=== PATIENT | female | born 1985 | race Caucasian/White ===

== ENCOUNTER 2018-09-20 09:41 | Emergency (ER) | payer OTHER ==
--- NOTE | 2018-09-20 09:56 | EDPHY ---
H & P Stated Complaint: Slammed R pointer finger in door this am Source: Patient Exam Limitations: No limitations - Personal History LMP (Females 10-55): 15-21 Days Ago Tetanus Vaccine Date: 2005 - Medical/Surgical History Hx Asthma: No Hx Chronic Respiratory Disease: No Hx Diabetes: No Hx Cardiac Disease: No Hx Renal Disease: No Hx Cirrhosis: No Hx Alcoholism: No Hx HIV/AIDS: No Hx Splenectomy or Spleen Trauma: No Other PMH: depression, bipolar - Social History Smoking Status: Never smoked Time Seen by Provider: 09/20/18 09:55 HPI/ROS: HPI: This is a 33-year-old female who presents with Chief Complaint: Slammed R pointer finger in door this am Location: Right index finger Quality: Injury Duration: 45 min prior to arrival Signs and Symptoms: No bleeding, no radiation, no numbness, no weakness, no tingling, no incontinence, + decreased range of motion, + swelling, + pain, no fever Timing: Acute Severity: 12/31 Context: Patient is right-hand dominant, presents with accidentally slamming her right index finger into the car door. She reports that the car door latch. Her poor friend was in the car and unlock the door and open the door for her. She reports that she has swelling and pain at the base of the right index finger. Pain is worsened with flexion and extension. Denies radiation, weakness. Modifying Factors: Ice pack applied Comment: ROS: A comprehensive 10 system review of systems is otherwise negative aside from elements mentioned in the history of present illness. MEDICAL/SURGICAL/SOCIAL HISTORY: Medical history: Depression, bipolar. Takes oral control pills. LMP 2- 3 days ago. Surgical history: Denies Social history: Nonsmoker CONSTITUTIONAL: Calm and cooperative adult white female, awake and alert, no obvious distress HEENT: Atraumatic and normocephalic. NECK: supple, no midline tenderness, flexion 45 degrees, extension 45 degrees, right and left lateral flexion 45 degrees. No meningismus. Cardiovascular: Normal S1/S2, regular rate, regular rhythm, without murmur rub or gallop. PULMONARY/CHEST: Symmetrical and nontender. Clear to auscultation bilaterally. Good air movement. No accessory muscle usage. ABDOMEN: Soft, nondistended, nontender. EXTREMITIES: 2/2 pulses, strength 5/5, right index finger shows swelling between the PIP and MCP joints with mild ecchymosis. No breaks in the skin. DIP/PIP/MCP flexion/extension intact with good light touch sensation. no deformities, no clubbing, no cyanosis or edema. NEUROLOGICAL: no focal neuro deficits. GCS 15. Light touch sensation intact. SKIN: Warm and dry, no erythema. no rash. Good capillary refill. (Dana Menon) Constitutional: Initial Vital Signs Temperature (C) 36.4 C 09/20/18 09:52 Heart Rate 70 09/20/18 09:52 Respiratory Rate 16 09/20/18 09:52 Blood Pressure 144/95 H 09/20/18 09:52 O2 Sat (%) 98 09/20/18 09:52 O2 Delivery Mode Room Air Allergies/Adverse Reactions: metoclopramide HCl [From Reglan] Allergy (Mild, Verified 10/27/10 13:04) Penicillins Allergy (Verified 09/20/18 09:50) Home Medications: Medication Instructions Recorded Levonorgestrel-Eth Estra 1 tab PO DAILY 10/27/10 [SEAS[place]ALE] lamoTRIgine [Lamictal] 150 mg PO DAILY 10/27/10 Medical Decision Making - Diagnostics Imaging Results: Imaging Impressions Hand X-Ray 09/20/18 09:56 Impression: Negative for fracture. ED Course/Re-evaluation: Right hand x-ray ordered and my read via PAC shows no fracture, dislocation. Does show some mild soft tissue swelling. Ice pack applied Advised supportive care. No signs of neurovascular compromise/tenting of skin/compartment syndrome/ extremities and joints examined above and below area of concern and are neurovascularly intact. This patient was seen under the supervision of my secondary supervising physician. I evaluated care for this patient independently. (Dana Menon) Differential Diagnosis: Differential diagnosis includes but is not limited to contusion, fracture, nerve injury, tendon injury. (Dana Menon) Other Provider: The patient was evaluated and managed by the Physician Cotton Ginner Helper. My co- signature indicates that I have reviewed this chart and I agree with the findings and plan of care as documented. I am the secondary supervising physician. (Beverly Lopez) Departure - Departure Disposition: Home, Routine, Self-Care Clinical Impression: Contusion of right index finger without damage to nail Qualifiers: Encounter type: initial encounter Qualified Code(s): S60.021A - Contusion of right index finger without damage to nail, initial encounter Condition: Good Instructions: Contusion in Adults (ED) Additional Instructions: Take Tylenol 650 mg every 4 hours and/or Ibuprofen 600 mg every 8 hours with food as needed for pain. Apply ice for 30 minutes at a time; 2-3 times per day for the next 1-2 days. The x-rays obtained in the emergency department today demonstrate no evidence of an obvious fracture. Referrals: Paul Alicea MD [Primary Care Provider] - As per Instructions Von Majano MD [Medical Doctor] - Follow Up Only If Needed
[2018-09-20 10:04] VITALS: BP 144/95
== END 2018-09-20 10:17 | disposition home or self-care (01) ==
DX: S60.021A Contusion of right index finger without damage to nail, initial encounter (principal); W23.1XXA Caught, crushed, jammed, or pinched between stationary objects, initial encounter; Y92.810 Car as the place of occurrence of the external cause; Y99.9 Unspecified external cause status